=== PATIENT | female | born 2005 | race Caucasian/White ===

== ENCOUNTER 2025-07-11 17:47 | Emergency (ER) | payer SELFPAY | END 2025-07-11 20:04 | disposition home or self-care (01) | LOC: BURERS 17:47 | DX: O9A.212 Injury, poisoning and certain other consequences of external causes complicating pregnancy, second trimester (principal); S93.401A Sprain of unspecified ligament of right ankle, initial encounter; W10.8XXA Fall (on) (from) other stairs and steps, initial encounter; Z3A.19 19 weeks gestation of pregnancy | CPT/HCPCS: 99283 ==